=== PATIENT | male | born 1990 | race Caucasian/White ===

== ENCOUNTER 2019-11-17 09:46 | Outpatient (RCR) | payer BC, SELFPAY ==
--- NOTE | 2019-11-17 11:29 | PTOPEVAL ---
PHYSICAL THERAPY EVALUATION Thank you for referring Lino Bustillo to [facility]. He was provided with a HEP and education - postural/body mechanics. I will make a follow up phone call next week to see how he is doing with his HEP. He most likely will not need further PT at this time. If he does - I will formulate a plan of care and forward it to you for signature. I agree with and certify that the evaluation and PT phone call follow up. 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 Lifting - would also have some discomfort. Did receive anti inflammatory medication from Dr. Malloy - helped - pain really not there now. 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 Home Meds Must Be Re-entered With Each Visit. Comments Additional Prior Level of Function recreation - watch TV, travel Comments - to/from [place] Pain Assessment Timing of Pain Assessment Timing of Pain Assessment Assessment Pain Scale Pain Scale Used Numeric (1 - 10) Self Report Pain Assessment Left Should
--- NOTE | 2019-11-24 15:35 | PCPTNOTE ---
Follow up phone call made to Lino. He continues to do well - no shoulder pain. No follow up planned. Discharge as per evaluation.
== END 2020-02-15 23:59 | disposition home or self-care (01) ==
LOC: ANHHIPT 09:46
PROVIDERS: PCP Internal Medicine; Visit Provider Internal Medicine
DX: M25.512 Pain in left shoulder (principal)
CPT/HCPCS: 97161

== ENCOUNTER → 2022-12-13 15:57 | Outpatient (CLI) | payer OTHER, SELFPAY ==
--- NOTE | ~2022-12-13 | CT_ITS ---
EXAMINATION: CT sinus wo con DATE: 12/13/2022 16:09 INDICATION: Sinusitis TECHNIQUE: Computed tomography (CT) of the paranasal sinuses was performed without intravenous contra st. The dose-length product was 269.39 mGy-cm. Automated exposure control and iterative reconstructio n technique were employed. COMPARISON: No prior studies for comparison. FINDINGS: There is mucosal thickening of the right maxillary and the ethmoid sinuses. No significant mucoperiosteal reaction. No air-fluid levels. Leftward nasal septal deviation. There is soft tissue o cclusion of the ostiomeatal units. Mastoids are pneumatized. No depressed skull fractures. IMPRESSION: 1. Mild sinusitis involving the right maxillary and ethmoid sinuses. Reviewed, dictated and finalized at location A.
== END ==
PROVIDERS: PCP Otolaryngology; Visit Provider Otolaryngology
DX: J32.4 Chronic pansinusitis (principal)
CPT/HCPCS: 70486